=== PATIENT | male | born 1965 | race Caucasian/White ===

== ENCOUNTER 2021-02-28 22:38 | Emergency (ER) | payer OTHER ==
[~2021-02-28] VITALS: Ht 172.7 cm; Wt 65.8 kg
== END 2021-03-01 04:04 | disposition home or self-care (01) ==
LOC: ER 22:38
DX: S93.402A Sprain of unspecified ligament of left ankle, initial encounter (principal); W05.0XXA Fall from non-moving wheelchair, initial encounter; Y92.009 Unspecified place in unspecified non-institutional (private) residence as the place of occurrence of the external cause
CPT/HCPCS: 73562-LT; 73610; 99283-25; A9270

== ENCOUNTER 2021-03-16 19:32 | Inpatient (IN) | payer OTHER ==
[~2021-03-16] VITALS: Ht 172.7 cm; Wt 69.4 kg
[2021-03-16 20:18] LABS: Hematocrit 28.5 % (37.0-53.0); Hemoglobin 9.9 g/dL (13.5-17.5); Mean Corpuscular HGB 28.9 pg (26.0-34.0); Mean Corpuscular HGB Conc 34.7 g/dL (31.5-36.5); Mean Corpuscular Volume 83 fL (80-100); Mean Platelet Volume 10.5 fL (9.1-12.4); Platelet Count 311 K/mm3 (150-400); RDW Coefficient Variation 15.9 % (11.7-14.2); RDW Standard Deviation 48.8 fL (35.1-46.3); Red Blood Cell Count 3.43 M/mm3 (4.30-5.90); White Blood Cell Count 19.78 K/mm3 (4.00-11.30)
[2021-03-16 20:46] LABS: Alanine Aminotransfer (ALT/SGP 25 U/L (12-78); Albumin, Blood 2.4 g/dL (3.4-5.0); Albumin/Globulin Ratio 0.5 (0.8-1.8); Alk Phos 138 U/L (50-136); Anion Gap 13 mmol/L (6-16); Aspartate Aminotrans (AST/SGOT 43 U/L (12-37); Bilirubin, Total 0.6 mg/dL (0.1-1.0); Blood Urea Nitrogen 18 mg/dL (8-24); Bun/Creatinine Ratio 25.5 (12.0-20.0); CO2, Blood 23 mmol/L (21-32); Calcium, Blood 7.9 mg/dL (8.5-10.1); Chloride, Blood 82 mmol/L (98-108); Creatinine, Blood 0.71 mg/dL (0.60-1.20); Globulin, Blood 5.1 g/dL (2.2-4.0); Glomerular Filtration Rate >60 (60-); Glucose, Blood 559 mg/dL (70-99); Potassium, Blood 4.1 mmol/L (3.5-5.5); Sodium, Blood 118 mmol/L (136-145); Total Protein, Blood 7.5 g/dL (6.4-8.2)
[2021-03-16 21:05] LABS: BAND PERCENT MAN 8 % (0-8); BASOPHILS PERCENT MAN 0 % (0-2); EOSINOPHILS PERCENT MAN 0 % (0-6); LYMPHOCYTES ABSOLUTE MAN 0.79 K/mm3 (0.84-5.20); LYMPHOCYTES PERCENT MAN 4 % (21-46); METAMYELOCYTE ABSOLUTE MAN 0.39 K/mm3 (0.00-0.00); METAMYELOCYTE PERCENT MAN 2 % (0-0); MONOCYTES ABSOLUTE MAN 0.59 K/mm3 (0.16-1.47); MONOCYTES PERCENT MAN 3 % (4-13); MYELOCYTE ABSOLUTE MAN 0.19 K/mm3 (0.00-0.00); MYELOCYTE PERCENT MAN 1 % (0-0); SEG NEUTROPHILS PERCENT MAN 82 % (41-73); TOTAL CELLS COUNTED 100
[2021-03-16 23:38] LABS: SARS-Cov-2 (COVID-19) PCR, MMC NEGATIVE (NEGATIVE)
--- NOTE | 2021-03-17 01:27 | NUR ---
PHYSICIAN COMMUNICATION CONTACTED ICE SELLER PHYSICIAN, DR CASTILLO, TO NOTIFY HER THAT THE PATIENT WAS EXTREMELY PAINFUL FROM BLE CELLULITIS AND TO ASK FOR PAIN MEDICATION. DR CASTILLO ORDERED NORCO 5/325 PO Q4 NEEDED.
--- NOTE | 2021-03-17 04:18 | NUR ---
PHYSICIAN COMMUNICATION CONTACTED BUILDING SERVICES COORDINATOR PHYSICIAN, DR CASTILLO, TO NOTIFY HER THAT THE PATIENT WAS STILL HAVING 7/10 PAIN AFTER RECEIVING HIS FIRST DOSE OF NORCO. DR CASTILLO INCREASED THE DOSE TO TWO 5/325 TABLETS OF NORCO PO Q4 HOURS NEEDED.
[2021-03-17 05:54] LABS: Hematocrit 24.9 % (37.0-53.0); Hemoglobin 8.7 g/dL (13.5-17.5); Mean Corpuscular HGB 28.8 pg (26.0-34.0); Mean Corpuscular HGB Conc 34.9 g/dL (31.5-36.5); Mean Corpuscular Volume 83 fL (80-100); Mean Platelet Volume 9.9 fL (9.1-12.4); Platelet Count 226 K/mm3 (150-400); RDW Coefficient Variation 15.7 % (11.7-14.2); RDW Standard Deviation 47.8 fL (35.1-46.3); Red Blood Cell Count 3.02 M/mm3 (4.30-5.90); White Blood Cell Count 16.24 K/mm3 (4.00-11.30)
[2021-03-17 06:04] LABS: Alanine Aminotransfer (ALT/SGP 18 U/L (12-78); Albumin, Blood 1.8 g/dL (3.4-5.0); Albumin/Globulin Ratio 0.5 (0.8-1.8); Alk Phos 99 U/L (50-136); Anion Gap 8 mmol/L (6-16); Aspartate Aminotrans (AST/SGOT 15 U/L (12-37); Bilirubin, Total 0.5 mg/dL (0.1-1.0); Blood Urea Nitrogen 17 mg/dL (8-24); Bun/Creatinine Ratio 26.6 (12.0-20.0); CO2, Blood 24 mmol/L (21-32); Calcium, Blood 7.8 mg/dL (8.5-10.1); Chloride, Blood 93 mmol/L (98-108); Creatinine, Blood 0.64 mg/dL (0.60-1.20); Globulin, Blood 3.7 g/dL (2.2-4.0); Glomerular Filtration Rate >60 (60-); Glucose, Blood 385 mg/dL (70-99); Potassium, Blood 3.2 mmol/L (3.5-5.5); Sodium, Blood 125 mmol/L (136-145)
[2021-03-17 06:06] LABS: Total Protein, Blood 5.5 g/dL (6.4-8.2)
--- NOTE | 2021-03-17 06:48 | NUR ---
SHIFT SUMMARY PATIENT ALERT AND ORIENTED. MEDICATED PER EMAR FOR PAIN. IV PATENT AND FLUSHED. BED IN LOWEST POSITION WITH WHEELS LOCKED AND ALARM ON. CALL LIGHT WITHIN REACH. REPORT GIVEN TO ONCOMING RN.
[2021-03-17 06:56] LABS: BAND PERCENT MAN 16 % (0-8); BASOPHILS PERCENT MAN 0 % (0-2); EOSINOPHILS ABSOLUTE MAN 0.16 K/mm3 (0.00-0.68); EOSINOPHILS PERCENT MAN 1 % (0-6); LYMPHOCYTES % ATYPICAL MANUAL 1 % (0-0); LYMPHOCYTES ABSOLUTE MAN 1.29 K/mm3 (0.84-5.20); LYMPHOCYTES PERCENT MAN 7 % (21-46); METAMYELOCYTE ABSOLUTE MAN 0.16 K/mm3 (0.00-0.00); METAMYELOCYTE PERCENT MAN 1 % (0-0); MONOCYTES PERCENT MAN 0 % (4-13); NEUTROPHILS ABSOLUTE MAN 14.61 K/mm3 (1.96-9.15); SEG NEUTROPHILS PERCENT MAN 74 % (41-73); TOTAL CELLS COUNTED 100
--- NOTE | 2021-03-17 18:37 | NUR ---
PT RESTING IN BED AFTER PM MEDICATION ADMIN AND DINNER. TREATED TWICE PER EMAR FOR PAIN. NO OTHER CHANGES NOTED.
[2021-03-17 23:44] LABS: Vancomycin, Trough 29.7 ug/mL (5.0-10.0)
--- NOTE | 2021-03-18 05:11 | NUR ---
SHIFT SUMMARY A/O, ABLE TO MAKE NEEDS KNOWN. COOPERATIVE WITH CARE. CALLS AND ANSWERS QUESTIONS APPROPRIATELY. STATED LEGS PINCHY, BUT NO REAL COMPLAINT OF PAIN THUS FAR. INDEPENDENT WITH URINAL AT BEDSIDE. NEW IV PLACED. APPEARED TO REST MUCH OF THE NIGHT. NO ACUTE CHANGES NOTED. IV ABX INFUSED WITHOUT COMPLICATIONS. BED REMAINS IN LOWEST POSITION. CALL LIGHT AND BELONGINGS WITHIN REACH. CONTINUE WITH CURRENT PLAN OF CARE. REPORT TO ONCOMING RN.
[2021-03-18 05:42] LABS: BASOPHILS ABSOLUTE AUTO 0.11 K/mm3 (0.00-0.23); BASOPHILS PERCENT AUTO 1 % (0-2); Hemoglobin 10.6 g/dL (13.5-17.5); LYMPHOCYTES ABSOLUTE AUTO 0.38 K/mm3 (0.84-5.20); LYMPHOCYTES PERCENT AUTO 2 % (21-46); MONOCYTES ABSOLUTE AUTO 0.35 K/mm3 (0.16-1.47); MONOCYTES PERCENT AUTO 2 % (4-13); Mean Corpuscular HGB 28.5 pg (26.0-34.0); Mean Corpuscular HGB Conc 32.1 g/dL (31.5-36.5); Mean Platelet Volume 10.7 fL (9.1-12.4); Platelet Count 262 K/mm3 (150-400); RDW Coefficient Variation 15.9 % (11.7-14.2); RDW Standard Deviation 52.5 fL (35.1-46.3); Red Blood Cell Count 3.72 M/mm3 (4.30-5.90); White Blood Cell Count 21.18 K/mm3 (4.00-11.30)
[2021-03-18 05:49] LABS: EOSINOPHILS PERCENT AUTO 1 % (0-6); IMMATURE GRAN PERCENT AUTO 1 % (0-1); Mean Corpuscular Volume 89 fL (80-100); NEUTROPHILS ABSOLUTE AUTO 20.14 K/mm3 (1.96-9.15); NEUTROPHILS PERCENT AUTO 95 % (41-73)
[2021-03-18 06:13] LABS: Vancomycin, Random 21.7 ug/mL
[2021-03-18 06:19] LABS: Anion Gap 8 mmol/L (6-16); Blood Urea Nitrogen 18 mg/dL (8-24); Bun/Creatinine Ratio 25.9 (12.0-20.0); CO2, Blood 23 mmol/L (21-32); Calcium, Blood 8.3 mg/dL (8.5-10.1); Chloride, Blood 96 mmol/L (98-108); Glomerular Filtration Rate >60 (60-); Glucose, Blood 27 mg/dL (70-99); Potassium, Blood 3.6 mmol/L (3.5-5.5); Sodium, Blood 127 mmol/L (136-145)
[2021-03-18 06:26] LABS: BAND PERCENT MAN 1 % (0-8); BASOPHILS PERCENT MAN 0 % (0-2); EOSINOPHILS PERCENT MAN 0 % (0-6); LYMPHOCYTES ABSOLUTE MAN 0.63 K/mm3 (0.84-5.20); LYMPHOCYTES PERCENT MAN 3 % (21-46); MONOCYTES PERCENT MAN 0 % (4-13); NEUTROPHILS ABSOLUTE MAN 20.54 K/mm3 (1.96-9.15); SEG NEUTROPHILS PERCENT MAN 96 % (41-73); TOTAL CELLS COUNTED 100
--- NOTE | 2021-03-18 06:28 | NUR ---
PHYSICIAN CORRESPONDENCE RECIEVED CRITICAL VALUE FOR GLUCOSE OF 27. WAS IN SPEAKING /c PATIENT PRIOR TO CALL FROM LAB; APPEARED ASYMPTOMATIC. UPON ASSESSMENT PATIENT STATED THAT HE HAD EATEN SOME OF HIS LEFTOVERS FROM YESTERDAYS TRAYS. RE-CHECKED /c FLOOR GLUCOMETER; READ 59. GIVEN SOME CRANBERRY JUICE. PHYSICIAN OK WITH COURSE OF ACTION.
--- NOTE | 2021-03-18 11:37 | NUR ---
20 G LOCATED IN LAC. NO S/S OF PHLEBITIS, FLUSHED EASILY WITH 10 CC NS.
--- NOTE | 2021-03-18 16:04 | NUR ---
PT TRANSFERRED TO SURGICAL UNIT AT 1500. REPORT GIVEN TO JB VERA.
--- NOTE | 2021-03-18 17:34 | NUR ---
ASSUMED CARE OF PATIENT. PT IS NOT HAPPY WITH HIS ROOM CHANGE. STATES HE "WILL " IF HE CAN'T USE THE PHONE. HE DOES HAVE HIS PERSONAL CELL PHONE BUT HAS NO PROTOZOOLOGY TEACHER WITH HIM. HE IS ALSO CONCERNED ABOUT LOST UPPER DENTURE. STATES HE TOOK OUT HIS DENTURE WHILE IN THE ED AND WAS TRANSFERRED BEFORE HE WAS ABLE TO PUT IT BACK IN HIS MOUTH. THIS IS THE ONLY THING HE REPORTS LOST. NURSING SUP FOR ED NOTIFIED AND WILL SEARCH. WOUNDS CLEANED AND WRAPPED PER NURSES DIRECTION. PT TOLERATED WELL. BED BATH GIVEN. PATIENT NOW EATING HIS MEAL AND RESTING.
--- NOTE | 2021-03-18 23:54 | NUR ---
PT RESTING COMFORTABLY IN BED. CALL LIGHT WITHIN REACH. PT OFFERED NIGHTTIME CARE, DECLINES. PT TO CALL FOR FURTHER NEEDS.
--- NOTE | 2021-03-19 00:05 | NUR ---
MISSED DOCUMENTATION OF CHEMICAL DVT PROPHALXIS. PT IS ON LOVENOX AT 0900.
[2021-03-19 05:47] LABS: Hematocrit 26.5 % (37.0-53.0); Hemoglobin 8.8 g/dL (13.5-17.5); Mean Corpuscular HGB 28.5 pg (26.0-34.0); Mean Corpuscular HGB Conc 33.2 g/dL (31.5-36.5); Mean Corpuscular Volume 86 fL (80-100); Mean Platelet Volume 9.8 fL (9.1-12.4); Platelet Count 310 K/mm3 (150-400); RDW Coefficient Variation 16.3 % (11.7-14.2); RDW Standard Deviation 51.8 fL (35.1-46.3); Red Blood Cell Count 3.09 M/mm3 (4.30-5.90)
--- NOTE | 2021-03-19 05:49 | NUR ---
PT WAS PLEASENT THROUGHOUT THE CONCRETE FOREMAN. DRESSING CHANGED X2, LARGE AMOUNT OF DRAINAGE, SHEETS CHANGED. PT COMPLAINED OF PAIN IN BILATERAL LEGS, MEDICATION WAS EFFECTIVE BUT DOES CAUSE SOME ITCHINESS. PT ADVISED NOT TO SCRATCH, ITCH CREAM APPLIED. VITAL SIGNS REMAINED STABLE, BUT NOTE HEART RATE ELEVATED, RANGING FROM 108-113. PT USES BEDSIDE URINAL WITH NO DIFFICULTIES. PERSONAL CARE ITEMS PROVIDED. TOLERATING PO WELL. WILL GIVE REPORT TO DAY SHIFT RN.
[2021-03-19 06:22] LABS: Anion Gap 8 mmol/L (6-16); Blood Urea Nitrogen 17 mg/dL (8-24); Bun/Creatinine Ratio 23.1 (12.0-20.0); CO2, Blood 27 mmol/L (21-32); Calcium, Blood 8.5 mg/dL (8.5-10.1); Chloride, Blood 94 mmol/L (98-108); Creatinine, Blood 0.74 mg/dL (0.60-1.20); Glomerular Filtration Rate >60 (60-); Glucose, Blood 41 mg/dL (70-99); Potassium, Blood 3.4 mmol/L (3.5-5.5); Sodium, Blood 129 mmol/L (136-145); Vancomycin, Random 13.1 ug/mL
--- NOTE | 2021-03-19 06:32 | NUR ---
LAB CALLED.PT WITH A CRITICAL LOW BLOOD GLUCOSE OF 41. THIS RN WAS IN ROOM WITH PT CHANGING HIS BILATERAL LEG DRESSINGS. PT WAS ALERT AND TALKING. ASYMPTOMATIC.APPLE JUICE AND SOFT PEARS PROVIDED. WILL RE-CHECK CHEM BG IN 10 MINUTES AND NOTIFY PHYSICIAN AN REPORT TO ON-COMING DAY RN
--- NOTE | 2021-03-19 06:51 | NUR ---
RE-CHECKED PTS CHEM-BG. @ 0638 GLUCOSE 87
[2021-03-19] MEDS ORDERED: SERT100 PO (08:33)
[2021-03-19] MEDS ORDERED: HYDHCL25 PO (08:35)
[2021-03-19] MEDS ORDERED: Prinivil10 MG PO (08:36)
[2021-03-19] MEDS ORDERED: INSULANPEN SC (08:40)
[2021-03-19] MEDS ORDERED: HUMALOG KW100 UNIT/1 (08:41)
--- NOTE | 2021-03-19 13:20 | NUR ---
PT RESTING WITH CALL LIGHT WITHIN REACH. HE IS REQUESTING HIS WOUNDS NOT BE DRESSED UNTIL LATER IN THE DAY. NEW ORDER FROM DR. MATTHEWS FOR WOUND CARE. PULSE RANGING 100-108.
--- NOTE | 2021-03-19 15:53 | NUR ---
WOUND CARE COMPLETED WITHOUT DIFFICULTY. PT TOLERATED WELL. CONTINUES TO HAVE SOME SLOUGHING OF SKIN DUE TO EDEMA. WAS POSITIONED ON RIGHT SIDE TO ALLOW SKIN ON BACK OF LEFT THIGH TO DRY. PT CAUTIONED TO NOT SCRATCH OR RUB ON SKIN.
--- NOTE | 2021-03-19 16:50 | NUR ---
DISCUSSED MISSING DENTURE WITH LASHON DUMONT. HE WILL CONTACT THE PATIENT ADVOCATE TO HELP WITH GETTING A NEW DENTURE.
--- NOTE | 2021-03-19 18:14 | NUR ---
PT FELLS BETTER AND MORE RESTED TODAY. WAS ABLE TO SLEEP FOR SEVERAL HOURS THIS AFTERNOON. WAS EVALUATED BY PT,OT AND STEAM SETTER. DISCHARGE PLAN IS TO DISCHARGE BACK TO [facility] WITH WOUND CLINIC REFERRAL. PT IN AGREEMENT WITH THIS PLAN. LOVENOX BEGUN TODAY FOR DVT PROPHALAXYS. EATING BETTER NOW THAT DIET IS MECHANICAL SOFT. REQUEST FOR PATIENT ADVOCATE TO SEE REGARDING HIS MISSING UPPER DENTURE. CONTINUES TO BE BRADYCARDIC, 100-108, DESPITE DOSE OF METOPROLOL 12.5MG. STILL REQUESTING PAIN MEDICATION Q6 HOURS. SKIN BREAKDIWN NOTED BETWEEN TOES. CURRENTLY RESTING WITH TV ON AND RAILS UP.
--- NOTE | 2021-03-19 23:21 | NUR ---
LATE ENTRY: PT'S NIGHT CHEM-BG GLUCOSE LEVEL READING AT 316. PT NOT SYMPTOMATIC.NO INSULIN ORDERED. NOTE: PTS BS HAS BEEN UP AND DOWN. I CONSULTED WITH THE NURSING BEAD FLIPPER AND CLINICAL NURSE MANAGERS THEY CAME THROUGH. THEY ADVICED MONITORING AND CONSULTING IN THE MORNING WITH THE PHYSICIAN TO ADJUST THE INSULIN. WILL RE-CHECK PTS GLUCOSE AND CONTINUE TO MONITOR.
--- NOTE | 2021-03-20 00:53 | NUR ---
AFTER SECOND HS CHEM-BG TAKEN, IT WAS NOTED TO BE 340. PTS GLUCOSE TRENDING UP. FINN [facility] [employer] ADVISORY TEAM WATCH OFFICER CONSULTED. DR TOWNSEND CALLED. VO OVER THE PHONE TO KEEP MED SCALE AND DOSE WITH HUMALOG SHORT ACTING NOW. DOSE GIVEN WILL CONTINUE TO MONITOR.
[2021-03-20 05:33] LABS: BASOPHILS ABSOLUTE AUTO 0.03 K/mm3 (0.00-0.23); BASOPHILS PERCENT AUTO 0 % (0-2); EOSINOPHILS PERCENT AUTO 2 % (0-6); Hematocrit 23.7 % (37.0-53.0); Hemoglobin 7.6 g/dL (13.5-17.5); IMMATURE GRAN ABSOLUTE AUTO 0.12 K/mm3 (0.00-0.10); IMMATURE GRAN PERCENT AUTO 1 % (0-1); LYMPHOCYTES ABSOLUTE AUTO 0.89 K/mm3 (0.84-5.20); LYMPHOCYTES PERCENT AUTO 7 % (21-46); MONOCYTES ABSOLUTE AUTO 0.41 K/mm3 (0.16-1.47); MONOCYTES PERCENT AUTO 3 % (4-13); Mean Corpuscular HGB 28.1 pg (26.0-34.0); Mean Corpuscular HGB Conc 32.1 g/dL (31.5-36.5); Mean Corpuscular Volume 88 fL (80-100); Mean Platelet Volume 10.6 fL (9.1-12.4); NEUTROPHILS ABSOLUTE AUTO 11.93 K/mm3 (1.96-9.15); NEUTROPHILS PERCENT AUTO 88 % (41-73); Platelet Count 287 K/mm3 (150-400); RDW Coefficient Variation 16.7 % (11.7-14.2); RDW Standard Deviation 53.9 fL (35.1-46.3); White Blood Cell Count 13.58 K/mm3 (4.00-11.30)
--- NOTE | 2021-03-20 05:44 | NUR ---
PT STATED HE WAS TIRED THIS EVENING. WANTED TO BE LEFT ALONE AFTER IV ANTIBIOTICS INFUSED. BLOOD GLUCOSE WAS TRENDING UP (SEE PREVIOUS NOTE). PT ASYMPTOMATIC, NURSING SUP CONSULTED AND CALLED. PER MD 3UNITS OF QUICK ACTING HUMALOG GIVEN SUB Q. PER NURSING SUP OKAY TO WAIT TILL NEXT SCHEDULED CHEM BG TO RE-TEST. VSS THROUGHOUT THE EVENING, BILATERAL LEG DRESSINGS DRY AND INTACT, PT DID HAVE A BM TONIGHT. WILL GIVE REPORT TO DAY RN AND HAVE THE ROUNDING PHYSICIAN POSSIBLY ADJUST HIS INSULIN.
[2021-03-20 05:53] LABS: Anion Gap 9 mmol/L (6-16); Blood Urea Nitrogen 15 mg/dL (8-24); Bun/Creatinine Ratio 22.6 (12.0-20.0); CO2, Blood 24 mmol/L (21-32); Calcium, Blood 8.3 mg/dL (8.5-10.1); Chloride, Blood 97 mmol/L (98-108); Creatinine, Blood 0.66 mg/dL (0.60-1.20); Glomerular Filtration Rate >60 (60-); Glucose, Blood 283 mg/dL (70-99); Potassium, Blood 4.2 mmol/L (3.5-5.5); Sodium, Blood 130 mmol/L (136-145)
--- NOTE | 2021-03-20 10:01 | NUR ---
PT. WANTED TO NAP & WAS COLD. BILAT LEG DRESSINGS WITH SMALL AMT. YELLOW FLUID IN SCATTERED AREAS ON DRESSSING. PT. WAS GIVEN PAIN MEDICATION PER ORDER. PT. WAS GIVEN A WARM BLANKET. IV ANTIBIOTIC INFUSING. CALL LIGHT IS WITHIN REACH.
--- NOTE | 2021-03-20 11:55 | NUR ---
PT. ADVOCATE HERE TO TALK WITH PT. ABOUT HIS MISSING DENTURES.
--- NOTE | 2021-03-20 13:04 | NUR ---
BOTH PT & OT HAVE VISITED PT.
--- NOTE | 2021-03-20 15:14 | NUR ---
1400 BILAT EXTREMITIES CLEANSED WITH WOUND MAP DRAFTER & WAS PAT DRY. XEROFORM APPLIED TO OPEN WOUNDS & THEN COVERED WITH ABD. & WRAPPED WITH KERLIX. XEROFORM PLACED BETWEEN DIGITS ON BILAT TOES. RIGHT LOWER LEG WITH OPEN WOUND APPROX. DIME SIZE, LEFT LOWER LEG WITH LARGE OPEN WOUND WITH BLACK SCATTERED AREAS AROUND SITE. BILAT LEGS WEEPING. ALSO LEFT UPPER LEG WITH PEELED SKIN, & REDDENED. BILAT LEGS WITH EDEMA. PEDAL PULSES PRESENT. PT. ALSO GIVEN BATHWIPES & WASHCLOTH FOR BODY CARE. BACK WAS WASHED & TRIAMCINOLONE CREAM APPLIED. PT. VERBALIZED IT WAS ITCHING. PT. HAD ALSO VERBALIZED THAT AFTER CHANGING HIS DRESSINGS ON HIS LEGS THAT IT FELT BETTER.
--- NOTE | 2021-03-20 15:35 | NUR ---
TEGADERM DRESSING COMING OFF, DRESSGING WAS CHANGED.
--- NOTE | 2021-03-20 15:37 | NUR ---
PT. DRINKING WATER & DIET PEPSI AT BEDSIDE.
--- NOTE | 2021-03-20 15:43 | NUR ---
0840 DR. MATTHEWS WAS SEEING PT. DR. MATTHEWS WAS NOTIFIED OF LABS, H&H BEING LOW. PER THEY WILL CONTINUE TO MONITOR.
--- NOTE | 2021-03-20 17:48 | NUR ---
PT. LUNGS CLEAR. PT. INSULIN GIVEN PER DR. ORDER. PT. ALSO RECEIVED HUMALOG ORDERED FOR CBG'S. PT. DID C/O BILAT LEG PAIN L>R & WAS MEDICATED X2 T.O. SHIFT. DRESSING CHANGE WAS DONE TO BILAT LEGS X1 PER ORDER. PT. NEEDED ASSIST UP TO BED SIDE COMMODE FOR BM. PT. VOIDS IN HIS URINIAL ON HIS OWN. PT. ALSO ABLE TO REPOSITION SELF IN HIS BED. PT. ABLE TO CLEANSE HIMSELF WITH BATH WIPES & THEN ORSC.NSC WASHED PT. BACK FOR HIM & APPLIED ORDERED CREAM TO HIS BACK FOR ITCHING. PT. WAS GIVEN WARM BLANKETS WHEN REQUESTED & FULL LINEN CHANGE WAS DONE. CALL LIGHT HAS BEEN WITHIN REACH.
--- NOTE | 2021-03-21 00:59 | NUR ---
PT SLEEPING ON LEFT SIDE, CALL LIGHT IN REACH, BED IN LOW-LOCKED POSITION.
--- NOTE | 2021-03-21 01:07 | NUR ---
LAB CALLED REGARDING AM LAB DRAW AND DRAWING VANCO TROUGH WITH 0700 LAB DRAW, HIS NEXT AM DOSE IS 0900 SO I TOLD HIM THAT WOULD BE FINE THAT IS HOW THEY DO IT ON THE FLOOR.
--- NOTE | 2021-03-21 06:06 | NUR ---
PT UP TO BEDSIDE COMMODE FOR MED SIZED BOWEL MOVEMENT DURING THE NOC. PT AWAKE AT 0600 ASKING FOR COFFEE. AT THAT TIME, RN CHANGED LEFT LEG DRESSING R/T MOISTURE AND GETTING LOOSE. PT APPEARS COMFORTABLE AT THIS TIME. CALL LIGHT IN REACH, TV ON AND BED IN LOW-LOCKED POSITION.
[2021-03-21 07:35] LABS: Hematocrit 23.1 % (37.0-53.0); Hemoglobin 7.6 g/dL (13.5-17.5); Mean Corpuscular HGB 28.7 pg (26.0-34.0); Mean Corpuscular HGB Conc 32.9 g/dL (31.5-36.5); Mean Corpuscular Volume 87 fL (80-100); Mean Platelet Volume 10.4 fL (9.1-12.4); Platelet Count 354 K/mm3 (150-400); RDW Coefficient Variation 16.7 % (11.7-14.2); RDW Standard Deviation 54.2 fL (35.1-46.3); Red Blood Cell Count 2.65 M/mm3 (4.30-5.90)
[2021-03-21 07:49] LABS: Vancomycin, Trough 14.5 ug/mL (5.0-10.0)
[2021-03-21 07:58] LABS: Anion Gap 8 mmol/L (6-16); Blood Urea Nitrogen 9 mg/dL (8-24); Bun/Creatinine Ratio 14.2 (12.0-20.0); CO2, Blood 26 mmol/L (21-32); Calcium, Blood 8.1 mg/dL (8.5-10.1); Chloride, Blood 96 mmol/L (98-108); Creatinine, Blood 0.64 mg/dL (0.60-1.20); Ferritin, Serum 199 ng/mL (26-388); Glomerular Filtration Rate >60 (60-); Glucose, Blood 246 mg/dL (70-99); Iron Serum 10 ug/dL (65-175); Percent Saturation 6.7 % (20.0-50.0); Potassium, Blood 4.3 mmol/L (3.5-5.5); Sodium, Blood 130 mmol/L (136-145); Total Iron Binding Capacity 150 ug/dL (250-450)
--- NOTE | 2021-03-21 12:26 | NUR ---
patient resting in bed. enouraged pt to float heels to prevent skin damage. states pain is 5/10 which is tolerable without pain medication needed. water refilled.pt denies other needs at present. pt states he is going to try to rest being tired from pt/ot visit. call light in reach.
--- NOTE | 2021-03-22 01:33 | NUR ---
PT SLEEPING, REPOSTIONS SELF THROUGH THE NIGHT. PT AWAKENS AND IS COOPERATIVE WITH IV CHECK. TV TURNED OFF FOR PT. CONT TO MONITOR.
--- NOTE | 2021-03-22 04:24 | NUR ---
PT WITH C/O NAUSEA, ZOFRAN 4MG IV GIVEN WITH 10ML NS IV FLUSH. PT REPOSITIONED SELF UP IN BED AND FEET READJUSTED ON PILLOW SO HEELS WERE OFF THE PILLOW. PT DENIES PAIN IN LOWER EXTREMITIES. BED IN LOW, LOCKED POSITION, CALL LIGHT IN REACH-TV ON PER PT.
--- NOTE | 2021-03-22 06:02 | NUR ---
PT SLEPT WELL, PO FLUID INTAKE AND OUTPUT GOOD THROUGH THE NIGHT. PT STATES WHEN ASKED IF IV ZOFRAN HELPED HIS NAUSEA, "A LITTLE BIT." PT THEN WAS PROVIDED DIET SPRITE PER REQUEST. HEELS STILL ELEVATED UP OFF PRESSURE. AWAITING AM LAB DRAW. REPORT WILL BE GIVEN TO ONCANKIT DAY RN.
[2021-03-22 07:16] LABS: BASOPHILS ABSOLUTE AUTO 0.03 K/mm3 (0.00-0.23); BASOPHILS PERCENT AUTO 0 % (0-2); EOSINOPHILS ABSOLUTE AUTO 0.09 K/mm3 (0.00-0.68); EOSINOPHILS PERCENT AUTO 1 % (0-6); Hematocrit 23.5 % (37.0-53.0); Hemoglobin 7.7 g/dL (13.5-17.5); IMMATURE GRAN ABSOLUTE AUTO 0.22 K/mm3 (0.00-0.10); IMMATURE GRAN PERCENT AUTO 2 % (0-1); LYMPHOCYTES ABSOLUTE AUTO 0.82 K/mm3 (0.84-5.20); LYMPHOCYTES PERCENT AUTO 6 % (21-46); MONOCYTES ABSOLUTE AUTO 0.72 K/mm3 (0.16-1.47); MONOCYTES PERCENT AUTO 6 % (4-13); Mean Corpuscular HGB 28.2 pg (26.0-34.0); Mean Corpuscular HGB Conc 32.8 g/dL (31.5-36.5); Mean Corpuscular Volume 86 fL (80-100); Mean Platelet Volume 10.5 fL (9.1-12.4); NEUTROPHILS PERCENT AUTO 86 % (41-73); Platelet Count 396 K/mm3 (150-400); RDW Coefficient Variation 16.9 % (11.7-14.2); RDW Standard Deviation 53.9 fL (35.1-46.3); Red Blood Cell Count 2.73 M/mm3 (4.30-5.90); White Blood Cell Count 13.08 K/mm3 (4.00-11.30)
--- NOTE | 2021-03-22 10:51 | NUR ---
PT STATES PAIN IS COMING DOWN FROM ORGINAL 03/05 TO 01/03 AND DENIES FURTHER NEEDS FOR OTHER MEDICATIONS. ASSISTED PT WITH REPOSITIONING AND ELEVATING LIMBS. DENIES OTHER NEEDS AT PRESENT. CALL LIGHT IN REACH.
--- NOTE | 2021-03-22 16:02 | NUR ---
FACE SHEET FAXED TO THE WOUND CARE CLINIC TO ASSIST WITH REFERAL PROCESS FOR DISCHARGE TOMORROW. PATIENT STATES HE DOES NOT HAVE A PERSONAL PHONE BUT CAN USE THE [facility] PUBLIC PHONE TO CALL CLINIC FOR UPDATES UNTIL HE CAN GET A PERSONAL PHONE IN 1-2 WEEKS TO BE CALLED BY THEM.
--- NOTE | 2021-03-22 23:15 | NUR ---
PT. CBG WAS CHECKED AT [facility]. ORDERS WERE ONLY FOR BEFORE MEALS. PT. CBG WAS 316 AT 0859. PT. VERBALIZED FEELING FINE. PT. WITHOUT ANY SYMPTOMS. PT. DRINKING DIET PEPSI & WATER AT BEDSIDE. PT. SLEEPING OFF & ON.
--- NOTE | 2021-03-23 00:10 | NUR ---
DOING ASSESSMENT, PT. LUNGS CLEAR BUT DECREASED IN BASES.
--- NOTE | 2021-03-23 00:49 | NUR ---
PT. AWAKENED TO VOID IN URINAL. URINAL EMPTIED. PT. VERBALIZES BEING WARM ENOUGH. INSTRUCTED PT. TO CALL IF NEEDED. ANYTHING.
--- NOTE | 2021-03-23 01:39 | NUR ---
CBG DONE AT DIDN'T TRANSFER OVER FROM CBG MACHINE TO COMPUTER. CBG WAS 316.
--- NOTE | 2021-03-23 05:27 | NUR ---
PT. HR CHECKED MANUALLY 112. JUST WOKE PT. UP FOR SHIFT VITAL SIGNS. PT. VERBALIZES FEELING OK. DENIES PAIN. PT. SLEEPING MOSTLY T.O. NOC. PT. DOES REPOSITION SELF. PT. VOIDING IN URINAL T.O. NOC. PT. TOOK IN 250 ORAL FLUIDS.
[2021-03-23] MEDS ORDERED: METO25ER PO (12:36)
[2021-03-23] MEDS ORDERED: DOXY100 PO (12:37)
[2021-03-23] MEDS ORDERED: VISBIOME 112.51 EACH PO (12:37)
[2021-03-23] MEDS ORDERED: Norco 5-325 Ta1 EACH PO (12:40)
--- NOTE | 2021-03-23 13:33 | NUR ---
PT DISCHARGED AT 1330 TO [facility]. DISCHARGE INSTRUCTIONS REVIEWED AND ALL QUESTIONS ANSWERED. NEW MEDICATIONS CALLED TO [facility] AT [facility] AND WRITTEN RX FOR NORCO GIVEN TO PATIENT. PT DISCHARGED WITH ALL HIS BELONGINGS WITH THE EXCEPTION OF HIS UPPER DENTURE. PT ADVOCATE AWARE AND IS HELPING RESOLVE THIS ISSUE. INSTRUCTED TO CALL [facility] SEVERAL DAYS BEFORE HIS APPOINTMENTS THEY ARE VERY BUSY AT THIS TIME. PROVIDED WITH PHONE NUMBERS FOR WOUND CLINIC, [facility] AND THE PATIENT ADVOCATE. VSS. PT REQUESTED NORCO FOR 8/10 PAIN AND WAS MEDICATED.
== END 2021-03-23 13:41 | disposition home health service (06) | DRG 872 ==
LOC: ER 19:32 → MEDS 23:05 → ER 03-17 00:17 → MEDS 03-17 00:17 → ORSCIP 03-18 15:10 → MEDS 03-18 15:10 → ORSCIP 03-23 13:41
PROVIDERS: Hospitalist; Internal Medicine; Pharmacist; Physician Assistant; ADMIT Internal Medicine
DX: A41.9 Sepsis, unspecified organism (principal); E87.2 Acidosis; E87.1 Hypo-osmolality and hyponatremia; L03.115 Cellulitis of right lower limb; L03.116 Cellulitis of left lower limb; R65.20 Severe sepsis without septic shock; Z20.822 Contact with and (suspected) exposure to COVID-19; E87.6 Hypokalemia; F41.9 Anxiety disorder, unspecified; F12.90 Cannabis use, unspecified, uncomplicated; I10 Essential (primary) hypertension; E11.65 Type 2 diabetes mellitus with hyperglycemia; D63.8 Anemia in other chronic diseases classified elsewhere; Z98.890 Other specified postprocedural states; Z79.4 Long term (current) use of insulin; Z79.899 Other long term (current) drug therapy; Z59.0 Homelessness
CPT/HCPCS: 36415; 73700; 80048; 80053; 80202; 82728; 82947; 83540; 83550; 83605; 85025; 85027; 87040; 93970; 96367; 96374; 96375; 97110; 97161; 97166; 97530; 97535; 99285-25; A9270; J0696; J1650; J2405; J2543; J3010; J3370; J7030; J7050; U0004

== ENCOUNTER 2021-04-12 01:54 | Day surgery (SDC) | payer OTHER ==
[~2021-04-12 01:54] MED LIST: DOXY100 PO; HUMALOG KW100 UNIT/1; HYDHCL25 PO; INSULANPEN SC; METO25ER PO; Norco 5-325 Ta1 EACH PO; Prinivil10 MG PO; SERT100 PO; VISBIOME 112.51 EACH PO
== END 2021-04-12 23:22 | disposition home or self-care (01) ==
LOC: WOUND 01:54
DX: E10.622 Type 1 diabetes mellitus with other skin ulcer (principal); L97.822 Non-pressure chronic ulcer of other part of left lower leg with fat layer exposed; L97.812 Non-pressure chronic ulcer of other part of right lower leg with fat layer exposed; L03.116 Cellulitis of left lower limb; E10.59 Type 1 diabetes mellitus with other circulatory complications; E10.51 Type 1 diabetes mellitus with diabetic peripheral angiopathy without gangrene; Z59.0 Homelessness

== ENCOUNTER 2021-04-22 12:14 | Inpatient (IN) | payer OTHER ==
[~2021-04-22] VITALS: Ht 172.7 cm; Wt 68.7 kg
[~2021-04-22 12:14] MED LIST changes: -HUMALOG KW100 UNIT/1; -HYDHCL25 PO; -INSULANPEN SC; -METO25ER PO; -Prinivil10 MG PO; -SERT100 PO
[2021-04-22 13:44] LABS: BASOPHILS ABSOLUTE AUTO 0.02 K/mm3 (0.00-0.23); BASOPHILS PERCENT AUTO 0 % (0-2); EOSINOPHILS PERCENT AUTO 0 % (0-6); Hematocrit 27.5 % (37.0-53.0); Hemoglobin 8.9 g/dL (13.5-17.5); IMMATURE GRAN ABSOLUTE AUTO 0.07 K/mm3 (0.00-0.10); IMMATURE GRAN PERCENT AUTO 1 % (0-1); LYMPHOCYTES ABSOLUTE AUTO 0.65 K/mm3 (0.84-5.20); LYMPHOCYTES PERCENT AUTO 5 % (21-46); MONOCYTES ABSOLUTE AUTO 0.59 K/mm3 (0.16-1.47); MONOCYTES PERCENT AUTO 5 % (4-13); Mean Corpuscular HGB 26.6 pg (26.0-34.0); Mean Corpuscular HGB Conc 32.4 g/dL (31.5-36.5); Mean Corpuscular Volume 82 fL (80-100); Mean Platelet Volume 9.4 fL (9.1-12.4); NEUTROPHILS ABSOLUTE AUTO 11.45 K/mm3 (1.96-9.15); NEUTROPHILS PERCENT AUTO 90 % (41-73); Platelet Count 427 K/mm3 (150-400); RDW Coefficient Variation 16.4 % (11.7-14.2); RDW Standard Deviation 49.7 fL (35.1-46.3); Red Blood Cell Count 3.34 M/mm3 (4.30-5.90); White Blood Cell Count 12.78 K/mm3 (4.00-11.30)
[2021-04-22 13:45] LABS: Alanine Aminotransfer (ALT/SGP 14 U/L (12-78); Albumin/Globulin Ratio 0.6 (0.8-1.8); Alk Phos 106 U/L (50-136); Anion Gap 19 mmol/L (6-16); Aspartate Aminotrans (AST/SGOT 14 U/L (12-37); Bilirubin, Total 0.7 mg/dL (0.1-1.0); Blood Urea Nitrogen 20 mg/dL (8-24); Bun/Creatinine Ratio 26.5 (12.0-20.0); CO2, Blood 22 mmol/L (21-32); Chloride, Blood 84 mmol/L (98-108); Creatinine, Blood 0.76 mg/dL (0.60-1.20); Glomerular Filtration Rate >60 (60-); Glucose, Blood 624 mg/dL (70-99); Potassium, Blood 4.4 mmol/L (3.5-5.5); Sodium, Blood 125 mmol/L (136-145)
[2021-04-22] MEDS ORDERED: SERT100 PO ×2 (15:12)
[2021-04-22] MEDS ORDERED: Prinivil10 MG PO ×2 (15:13)
[2021-04-22] MEDS ORDERED: METO25ER PO ×2 (15:13)
[2021-04-22] MEDS ORDERED: INSULANPEN SC ×2 (15:13)
[2021-04-22] MEDS ORDERED: Hydroxyzine HCl50 MG PO ×2 (15:14)
[2021-04-22] MEDS ORDERED: FOLI1 PO ×2 (15:14)
[2021-04-22] MEDS ORDERED: HUMALOG KW100 UNIT/1 SC ×2 (15:16)
[2021-04-22 17:29] LABS: Source, Urine Voided
[2021-04-22 17:45] LABS: Appearance, Urine Clear (Clear); Bilirubin, Urine Neg (Neg); Blood, Urine 1+ (Neg); Color, Urine Yellow (P-Yellow); Glucose Qualitative, Urine 4+ (Neg); Ketones, Urine 3+ (Neg); Leukocyte Esterase, Urine Neg (Neg); Nitrite, Urine Neg (Neg); Protein, Urine 2+ (Neg); Specific Gravity, Urine 1.015 (1.003-1.022); Urobilinogen, Urine NORM (Normal)
[2021-04-22 18:02] LABS: U Amphetamine Screen Not Detected; U Barbituate Screen Not Detected; U Benzodiazapine Screen Not Detected; U Buprenorphine Screen Not Detected; U Cannabinoids Screen Not Detected; U Cocaine Screen Not Detected; U Methadone Screen Not Detected; U Methamphetamine Screen Not Detected; U Opiates Screen Not Detected; U Oxycodone Screen Not Detected; U Phencyclidine Screen Not Detected; U Propoxyphene Screen Not Detected
[2021-04-22 18:16] LABS: Bacteria Few /hpf; Squamous Epithelial Cells Few /hpf (Few)
[2021-04-22 18:25] LABS: SARS-Cov-2 (COVID-19) PCR, MMC NEGATIVE (NEGATIVE)
--- NOTE | 2021-04-22 19:45 | NUR ---
transfer report from Caren RUIZ RN on 55 year old Male who resides at [place] & has lt LE cellulitis with active maggot infestation despite using peroxide cleanse per report. Will use contact isolation & sticky mat at [facility] called for. Await admission, spoke with for consults.
[2021-04-23 04:59] LABS: BASOPHILS ABSOLUTE AUTO 0.05 K/mm3 (0.00-0.23); BASOPHILS PERCENT AUTO 1 % (0-2); EOSINOPHILS ABSOLUTE AUTO 0.05 K/mm3 (0.00-0.68); EOSINOPHILS PERCENT AUTO 1 % (0-6); Hematocrit 26.3 % (37.0-53.0); Hemoglobin 8.5 g/dL (13.5-17.5); IMMATURE GRAN ABSOLUTE AUTO 0.02 K/mm3 (0.00-0.10); IMMATURE GRAN PERCENT AUTO 0 % (0-1); LYMPHOCYTES ABSOLUTE AUTO 1.09 K/mm3 (0.84-5.20); LYMPHOCYTES PERCENT AUTO 11 % (21-46); MONOCYTES ABSOLUTE AUTO 0.56 K/mm3 (0.16-1.47); MONOCYTES PERCENT AUTO 6 % (4-13); Mean Corpuscular HGB 26.9 pg (26.0-34.0); Mean Corpuscular HGB Conc 32.3 g/dL (31.5-36.5); Mean Corpuscular Volume 83 fL (80-100); Mean Platelet Volume 9.4 fL (9.1-12.4); NEUTROPHILS PERCENT AUTO 82 % (41-73); Platelet Count 340 K/mm3 (150-400); RDW Coefficient Variation 16.2 % (11.7-14.2); Red Blood Cell Count 3.16 M/mm3 (4.30-5.90); White Blood Cell Count 9.57 K/mm3 (4.00-11.30)
[2021-04-23 05:21] LABS: Alanine Aminotransfer (ALT/SGP 11 U/L (12-78); Albumin, Blood 2.5 g/dL (3.4-5.0); Albumin/Globulin Ratio 0.6 (0.8-1.8); Alk Phos 92 U/L (50-136); Anion Gap 7 mmol/L (6-16); Aspartate Aminotrans (AST/SGOT 14 U/L (12-37); Bilirubin, Total 0.8 mg/dL (0.1-1.0); Blood Urea Nitrogen 10 mg/dL (8-24); Bun/Creatinine Ratio 16.7 (12.0-20.0); CO2, Blood 28 mmol/L (21-32); Calcium, Blood 8.4 mg/dL (8.5-10.1); Chloride, Blood 94 mmol/L (98-108); Globulin, Blood 4.3 g/dL (2.2-4.0); Glomerular Filtration Rate >60 (60-); Glucose, Blood 402 mg/dL (70-99); Potassium, Blood 4.1 mmol/L (3.5-5.5); Sodium, Blood 129 mmol/L (136-145); Total Protein, Blood 6.8 g/dL (6.4-8.2)
--- NOTE | 2021-04-23 05:44 | NUR ---
55 year old Male [facility] with uncontrolled diabetes type 1 with bgs over 600 in ER . [facility] short & long lasting insulin rx for this AM, PT has lt LE deep tunneling wound with heavy maggot infestation with ER using 2 bottles of peroxide & this RN this AM used 1 bottle of wound cleanser to remove multiple more. Photos taken but photos printer not working tonight so not on chart. PT saus he had seizure & caused lt le wound.Other scattered wounds. PT on Vanco per pharmacy got 3 l ns in ER. Medicated for acute pain with 1 mg dilaudid 1 mg x2 & toradol x 1 with helpful effect. WC bound baseline PT brought own WC which may have maggots from lower extremity wounds, none observed on surface. ETOH WD with no PRN needed with HS atarax scheduled.
--- NOTE | 2021-04-23 16:13 | NUR ---
WOUND CARE, SPRAYED WITH SKIN CLEANSER, REMOVED MAGGOTS, WOUND BED CLEAN, MAGGOTS CONTINUE TO CYNDIE DOWN THE OUTER EDGES OF THE WOUND, PATIENT TOLERATED WELL, CLEAN DRESSING PLACED,
--- NOTE | 2021-04-23 17:12 | NUR ---
MEDICATED FOR PAIN, SUCTION TO MAGGOTS, WCTM
[2021-04-24 02:31] LABS: BASOPHILS ABSOLUTE AUTO 0.04 K/mm3 (0.00-0.23); BASOPHILS PERCENT AUTO 1 % (0-2); EOSINOPHILS ABSOLUTE AUTO 0.47 K/mm3 (0.00-0.68); EOSINOPHILS PERCENT AUTO 9 % (0-6); Hematocrit 24.1 % (37.0-53.0); Hemoglobin 7.7 g/dL (13.5-17.5); IMMATURE GRAN ABSOLUTE AUTO 0.02 K/mm3 (0.00-0.10); IMMATURE GRAN PERCENT AUTO 0 % (0-1); LYMPHOCYTES PERCENT AUTO 13 % (21-46); MONOCYTES ABSOLUTE AUTO 0.48 K/mm3 (0.16-1.47); MONOCYTES PERCENT AUTO 9 % (4-13); Mean Corpuscular HGB 26.6 pg (26.0-34.0); Mean Corpuscular Volume 83 fL (80-100); Mean Platelet Volume 9.2 fL (9.1-12.4); NEUTROPHILS PERCENT AUTO 69 % (41-73); Platelet Count 256 K/mm3 (150-400); RDW Coefficient Variation 16.1 % (11.7-14.2); RDW Standard Deviation 48.5 fL (35.1-46.3); White Blood Cell Count 5.51 K/mm3 (4.00-11.30)
[2021-04-24 02:48] LABS: Anion Gap 5 mmol/L (6-16); Blood Urea Nitrogen 13 mg/dL (8-24); Bun/Creatinine Ratio 19.8 (12.0-20.0); CO2, Blood 30 mmol/L (21-32); Calcium, Blood 8.5 mg/dL (8.5-10.1); Chloride, Blood 95 mmol/L (98-108); Creatinine, Blood 0.66 mg/dL (0.60-1.20); Glomerular Filtration Rate >60 (60-); Glucose, Blood 201 mg/dL (70-99); Potassium, Blood 4.2 mmol/L (3.5-5.5); Sodium, Blood 130 mmol/L (136-145)
[2021-04-24 02:49] LABS: Vancomycin, Trough 16.1 ug/mL (5.0-10.0)
--- NOTE | 2021-04-24 06:27 | NUR ---
END OF SHIFT SUMMARY: This nurse did wound care on pt. wound bed is pink with gan exudate. less maggots seen. pt tolerated procedures well. pt pleasant and positive. using urinal. No needs at this time. Call light within reach, bed in lowest position.
--- NOTE | 2021-04-24 10:47 | NUR ---
PATIENT GOT OOB AND AMBULATED TO BATHROOM, SKIN TEAR TO RIGHT POSITERIOR HEEL BLEED, SIGHT CLEANED AND COMPRESSION DRSG APPLIED, ENSURED CALL LIGHT IS WORKING AND WITH IN REACH, WCTM
--- NOTE | 2021-04-24 15:24 | NUR ---
1500 DR RIOS ROUNDED, PATIENT EDUCATED OF THE POSSIBLITY OF AMPUTATION, DRSG CHANGE DONE WITH DR RIOS [address] MATTHEWS
--- NOTE | 2021-04-24 15:54 | NUR ---
VISITED WITH PATIENT
--- NOTE | 2021-04-24 15:56 | NUR ---
Introduction: PT refered by nursing staff. Assessment: PT presented seated upright in bed, with distressed expression. I asked PT how he was doing? PT replied," I don't want to talk about it, I just found out and I don't want to talk about it." I said ok. PT continued, "I'm a Denominational, I pray, but this is too much. I havent had time to think about it. They're going to cut off my leg." I reassured PT that it was fine, that he alone can walk through this difficult time, but he doesn't have to walk alone. Intervention: PT offered prayer. PT offered [place] Bible. Outcome: PT received prayer and Bible. Follow-Up: As needed or requested.
--- NOTE | 2021-04-25 03:56 | NUR ---
SHIFT SUMMARY PT SLEPT WELL MUCH OF THE EVENING. DRESSING CHANGED TO LLE. ONLY A COUPLE OF MAGGOTS SUCTIONED WITH DRESSING CHANGE THIS AM. WOUND CLEANED WITH WOUND CLEANSER AND DRESSED WITH GAUZE, AN ABD PAD, AND KERLEX. PT ALSO HAS SMALL WOUNDS ON BILATERAL HANDS AND BLISTERS ON RIGHT HAND. PAIN REPORTED TO WOUND SITE. MEDICATED PER EMAR. PT NPO SINCE MIDNIGHT FOR PROCEDURE TODAY. 1 UNIT OF PRBC'S COMPLETED THIS EVENING. VITAL SIGNS STABLE. WILL CONTINUE TO MONITOR.
[2021-04-25 04:40] LABS: Hematocrit 23.9 % (37.0-53.0); Hemoglobin 7.9 g/dL (13.5-17.5); Mean Corpuscular HGB 27.4 pg (26.0-34.0); Mean Corpuscular HGB Conc 33.1 g/dL (31.5-36.5); Mean Corpuscular Volume 83 fL (80-100); Mean Platelet Volume 9.4 fL (9.1-12.4); Platelet Count 246 K/mm3 (150-400); RDW Coefficient Variation 15.7 % (11.7-14.2); RDW Standard Deviation 47.7 fL (35.1-46.3); Red Blood Cell Count 2.88 M/mm3 (4.30-5.90); White Blood Cell Count 3.89 K/mm3 (4.00-11.30)
[2021-04-25 05:10] LABS: Anion Gap 4 mmol/L (6-16); Blood Urea Nitrogen 11 mg/dL (8-24); Bun/Creatinine Ratio 15.1 (12.0-20.0); CO2, Blood 30 mmol/L (21-32); Calcium, Blood 8.3 mg/dL (8.5-10.1); Chloride, Blood 96 mmol/L (98-108); Creatinine, Blood 0.73 mg/dL (0.60-1.20); Glomerular Filtration Rate >60 (60-); Glucose, Blood 157 mg/dL (70-99); Potassium, Blood 4.2 mmol/L (3.5-5.5); Sodium, Blood 130 mmol/L (136-145)
--- NOTE | 2021-04-25 07:34 | NUR ---
History, Chart, Medications and Allergies reviewed before start of procedure. Lungs clear T/O to Auscultation. Patient confirms NPO status and agrees with scheduled surgery. Pre-Op teaching done. Pt verbalizes understanding.
--- NOTE | 2021-04-25 18:22 | NUR ---
SHIFT CHANGE PATIENT WENT DOWN TO GET A DEBRIDEMENT DONE OF LOWER LEFT EXTREMITY. PATIENT ARRIVED BACK FROM SURGERY AROUND 11AM. WOUND VAC IN PLACE. PATIENT HAS ONLY REQUESTED PAIN MEDICATION ONCE THIS SHIFT. PATIENT MEDICATED WITH DILAUDID ONCE. PATIENT HAS BLISTERS ON HANDS THAT HAVE BEEN THERE FOR A FEW DAYS. PATIENT PLEASANT AND COOPERATIVE DURING SHIFT. VITAL SIGNS REVIEWED. WILL CONTINUE TO MONITOR UNTIL SHIFT CHANGE.
[2021-04-26 02:07] LABS: Hematocrit 25.5 % (37.0-53.0); Hemoglobin 8.3 g/dL (13.5-17.5); Mean Corpuscular HGB 27.1 pg (26.0-34.0); Mean Corpuscular HGB Conc 32.5 g/dL (31.5-36.5); Mean Corpuscular Volume 83 fL (80-100); Mean Platelet Volume 9.5 fL (9.1-12.4); Platelet Count 269 K/mm3 (150-400); RDW Coefficient Variation 15.9 % (11.7-14.2); RDW Standard Deviation 48.3 fL (35.1-46.3); Red Blood Cell Count 3.06 M/mm3 (4.30-5.90); White Blood Cell Count 5.17 K/mm3 (4.00-11.30)
[2021-04-26 02:24] LABS: Vancomycin, Trough 15.8 ug/mL (5.0-10.0)
[2021-04-26 02:28] LABS: Anion Gap 5 mmol/L (6-16); Blood Urea Nitrogen 12 mg/dL (8-24); Bun/Creatinine Ratio 15.7 (12.0-20.0); CO2, Blood 32 mmol/L (21-32); Calcium, Blood 8.2 mg/dL (8.5-10.1); Chloride, Blood 93 mmol/L (98-108); Creatinine, Blood 0.76 mg/dL (0.60-1.20); Glomerular Filtration Rate >60 (60-); Glucose, Blood 265 mg/dL (70-99); Potassium, Blood 4.2 mmol/L (3.5-5.5); Sodium, Blood 130 mmol/L (136-145)
--- NOTE | 2021-04-26 06:05 | NUR ---
No acute changes or significant events occurred overnight.
--- NOTE | 2021-04-26 18:32 | NUR ---
sHIFT Summary, The patient is A/OX4 to person, place, time and event. He has been pleasent and cooperative with his care. The patient is on bed rest and has been using the urinal. The patient has not had a BM this shift but he denies any abd pain. The patient has pain in his LLE and is being medicated with toradol and dilaudid per emar and he stated that his pain has been controlled well this shift. His wound vac is CDI and drainage is red sanguineous fluid. distal pulses and cap refil <3 seconds present on left foot. The patient requested to discharge to [facility] and I called his councler but they were unable to accomidate. He stated that [facility] and has a plan to take care of himself while staying there. The patient has not shown any signs of ETOH withdrawl this shift. He is on RA and denied any SOB or chest pain. He has been eating well and asks for food in-between meals.
--- NOTE | 2021-04-27 05:53 | NUR ---
Pt AAOx3, denies pain, SOB, or other discomforts at this time. Pt has a wound vac to his LLE that he will be discharging with later today hopefully. Pt to discharge back to the [facility]. Plan: stool sample, bg ac/hs, abx, discharge
--- NOTE | 2021-04-27 12:20 | NUR ---
PATIENT RETURNED TO UNIT/ROOM A&OX NO S/S DISTRESS NOTED WILL CONT TO MONIOR
--- NOTE | 2021-04-27 17:34 | NUR ---
PATIENT WITH NO SIG CHANGES IN CONDITION NOTED THROUGHOUT SHIFT A&OX4 ABLE TO VERBALIZE NEEDS ADEQUATE PO INTAKE BEDREST MAINTAINED USES URINAL MEDICATED FOR INTERMITTENT MOD LLE PAIN PER PRN WITH EFFECTIVENESS WOUND VAC MAINTAINED/INTACT TO LLE VSS RESP EASY/EVEN/UNLABORED NO S/S DISTRESS NOTED WILL CONT TO MONITOR CALL LIGHT WITHIN REACH
--- NOTE | 2021-04-28 04:10 | NUR ---
Pt AAOx3, had some pain which was releived with PRN meds. Pt calls appropriately, has wound vac in place. Plan: Possible discharge today with wound vac. Pt to have wound vac change prior to discharge. Abx, and stool sample.
[2021-04-28 05:13] LABS: Hematocrit 28.1 % (37.0-53.0); Hemoglobin 9.1 g/dL (13.5-17.5); Mean Corpuscular HGB 27.1 pg (26.0-34.0); Mean Corpuscular HGB Conc 32.4 g/dL (31.5-36.5); Mean Corpuscular Volume 84 fL (80-100); Mean Platelet Volume 9.6 fL (9.1-12.4); Platelet Count 276 K/mm3 (150-400); RDW Coefficient Variation 16.5 % (11.7-14.2); RDW Standard Deviation 50.8 fL (35.1-46.3); Red Blood Cell Count 3.36 M/mm3 (4.30-5.90); White Blood Cell Count 5.24 K/mm3 (4.00-11.30)
[2021-04-28 05:48] LABS: Anion Gap 5 mmol/L (6-16); Blood Urea Nitrogen 10 mg/dL (8-24); Bun/Creatinine Ratio 13.9 (12.0-20.0); CO2, Blood 31 mmol/L (21-32); Calcium, Blood 8.7 mg/dL (8.5-10.1); Chloride, Blood 96 mmol/L (98-108); Creatinine, Blood 0.72 mg/dL (0.60-1.20); Glomerular Filtration Rate >60 (60-); Glucose, Blood 250 mg/dL (70-99); Potassium, Blood 4.2 mmol/L (3.5-5.5); Sodium, Blood 132 mmol/L (136-145)
[2021-04-28] MEDS ORDERED: ACET500 PO ×2 (11:50)
[2021-04-28] MEDS ORDERED: LEVFLO500 PO ×2 (11:50)
[2021-04-28] MEDS ORDERED: VISBIOME 112.51 EACH PO ×2 (11:53)
[2021-04-28] MEDS ORDERED: MULTI-VITAMIN1 EAC2 PO ×2 (11:53)
[2021-04-28] MEDS ORDERED: VITAMIN D31000 UNI1 PO ×2 (11:54)
[2021-04-28 13:08] LABS: Stool Occult Blood Guaiac 1 Neg (Neg)
--- NOTE | 2021-04-28 16:10 | NUR ---
DISCHARGE NOTE: PT DISCHARGED TO [facility] TODAY. IV REMOVED AND PT TOLERATED WELL. WOUND VAC DRESSING CHANGED AND PHOTOS TAKEN OF WOUND. WOUND BED HAS 3 CM TUNNELLING AND MEASURES 11 CM BY 9 CM. GRANULATION TISSUE NOTED TO WOUND BED. SEROSANGUINEOUS DRAINAGE MODERATE AMOUNT. PT LEG IS EDEMOUS AND PURPLE RED COLORED SURROUNDING WOUND. PT REPORTED PAIN WITH WOUND CARE. TYLENOL GIVEN.
== END 2021-04-28 15:59 | disposition home or self-care (01) | DRG 854 ==
LOC: ER 12:14 → MEDS 18:26
PROVIDERS: Emergency Medicine; Internal Medicine; ADMIT Hospitalist
PROC: 30233N1 Transfusion of Nonautologous Red Blood Cells into Peripheral Vein, Percutaneous Approach (ICD-10-PCS; principal; 2021-04-24)
PROC: 0JBP0ZZ Excision of Left Lower Leg Subcutaneous Tissue and Fascia, Open Approach (ICD-10-PCS; 2021-04-25)
DX: A41.9 Sepsis, unspecified organism (principal); L97.829 Non-pressure chronic ulcer of other part of left lower leg with unspecified severity; L03.116 Cellulitis of left lower limb; E87.2 Acidosis; I10 Essential (primary) hypertension; D63.8 Anemia in other chronic diseases classified elsewhere; F32.9 Major depressive disorder, single episode, unspecified; Z20.822 Contact with and (suspected) exposure to COVID-19; E11.65 Type 2 diabetes mellitus with hyperglycemia; F10.20 Alcohol dependence, uncomplicated; B87.89 Myiasis of other sites; Z98.890 Other specified postprocedural states; Z87.891 Personal history of nicotine dependence; Z59.00 Homelessness unspecified; Z91.14 Patient's other noncompliance with medication regimen; Z79.4 Long term (current) use of insulin; Z79.899 Other long term (current) drug therapy
CPT/HCPCS: 36415; 36430; 71045; 73701; 80048; 80053; 80202; 81001; 82272; 82947; 83036; 83605; 83735; 84100; 84145; 85025; 85027; 86850; 86900; 86901; 86923; 87040; 87070; 87071; 87075; 87077; 87186; 87205; 93005; 93010; 96365-59; 96375-59; 99285-25; A9270; G0480; J0696; J1100; J1170; J1650; J1815; J1885; J2405; J2704; J3010; J3370; J7030; J7040; J7120; P9016; Q9967; U0004

== ENCOUNTER 2021-05-01 02:11 | Day surgery (SDC) | payer OTHER ==
[~2021-05-01 02:11] MED LIST changes: +ACET500 PO; +FOLI1 PO; +HUMALOG KW100 UNIT/1 SC; +Hydroxyzine HCl50 MG PO; +INSULANPEN SC; +LEVFLO500 PO; +METO25ER PO; +MULTI-VITAMIN1 EAC2 PO; +Prinivil10 MG PO; +SERT100 PO; +VITAMIN D31000 UNI1 PO
== END 2021-05-01 23:03 | disposition home or self-care (01) ==
LOC: WOUND 02:11
DX: E10.622 Type 1 diabetes mellitus with other skin ulcer (principal); L97.829 Non-pressure chronic ulcer of other part of left lower leg with unspecified severity; L97.812 Non-pressure chronic ulcer of other part of right lower leg with fat layer exposed; E10.59 Type 1 diabetes mellitus with other circulatory complications; E10.51 Type 1 diabetes mellitus with diabetic peripheral angiopathy without gangrene; Z59.00 Homelessness unspecified
CPT/HCPCS: A9270

== ENCOUNTER 2021-05-03 01:31 | Day surgery (SDC) | payer OTHER | END 2021-05-03 23:10 | disposition home or self-care (01) | LOC: WOUND 01:31 | DX: E10.622 Type 1 diabetes mellitus with other skin ulcer (principal); L97.829 Non-pressure chronic ulcer of other part of left lower leg with unspecified severity; L97.812 Non-pressure chronic ulcer of other part of right lower leg with fat layer exposed; L03.90 Cellulitis, unspecified; E10.59 Type 1 diabetes mellitus with other circulatory complications; E10.51 Type 1 diabetes mellitus with diabetic peripheral angiopathy without gangrene; Z59.00 Homelessness unspecified ==

== ENCOUNTER 2021-05-06 03:21 | Day surgery (SDC) | payer OTHER | END 2021-05-06 22:52 | disposition home or self-care (01) | LOC: WOUND 03:21 | DX: E10.622 Type 1 diabetes mellitus with other skin ulcer (principal); L97.812 Non-pressure chronic ulcer of other part of right lower leg with fat layer exposed; L97.822 Non-pressure chronic ulcer of other part of left lower leg with fat layer exposed; L03.116 Cellulitis of left lower limb; L03.115 Cellulitis of right lower limb; E10.59 Type 1 diabetes mellitus with other circulatory complications; E10.51 Type 1 diabetes mellitus with diabetic peripheral angiopathy without gangrene; Z59.00 Homelessness unspecified | CPT/HCPCS: A9270 ==

== ENCOUNTER 2021-05-08 05:12 | Day surgery (SDC) | payer OTHER ==
[2021-05-14] MEDS ORDERED: Cleocin HCl150 MG PO (05:35)
== END 2021-05-08 22:43 | disposition home or self-care (01) ==
LOC: WOUND 05:12
DX: E10.622 Type 1 diabetes mellitus with other skin ulcer (principal); L97.829 Non-pressure chronic ulcer of other part of left lower leg with unspecified severity; L97.812 Non-pressure chronic ulcer of other part of right lower leg with fat layer exposed; E10.59 Type 1 diabetes mellitus with other circulatory complications; E10.51 Type 1 diabetes mellitus with diabetic peripheral angiopathy without gangrene; Z59.00 Homelessness unspecified

== ENCOUNTER 2021-05-13 03:59 | Day surgery (SDC) | payer OTHER ==
[2021-05-14] MEDS ORDERED: Cleocin HCl150 MG PO (05:35)
== END 2021-05-13 12:00 | disposition home or self-care (01) ==
LOC: WOUND 03:59
DX: E10.622 Type 1 diabetes mellitus with other skin ulcer (principal); L97.829 Non-pressure chronic ulcer of other part of left lower leg with unspecified severity; L97.812 Non-pressure chronic ulcer of other part of right lower leg with fat layer exposed; E10.59 Type 1 diabetes mellitus with other circulatory complications; E10.51 Type 1 diabetes mellitus with diabetic peripheral angiopathy without gangrene; Z59.00 Homelessness unspecified
CPT/HCPCS: G0463

== ENCOUNTER 2021-05-15 04:39 | Day surgery (SDC) | payer OTHER ==
[~2021-05-15 04:39] MED LIST changes: +Cleocin HCl150 MG PO
== END 2021-05-15 23:56 | disposition home or self-care (01) ==
LOC: WOUND
DX: E10.622 Type 1 diabetes mellitus with other skin ulcer (principal); L97.812 Non-pressure chronic ulcer of other part of right lower leg with fat layer exposed; L97.829 Non-pressure chronic ulcer of other part of left lower leg with unspecified severity; L03.115 Cellulitis of right lower limb; E10.59 Type 1 diabetes mellitus with other circulatory complications; E10.51 Type 1 diabetes mellitus with diabetic peripheral angiopathy without gangrene; Z59.00 Homelessness unspecified

== ENCOUNTER 2021-05-17 03:31 | Day surgery (SDC) | payer OTHER | END 2021-05-17 22:52 | disposition home or self-care (01) | LOC: WOUND 03:31 | DX: E10.622 Type 1 diabetes mellitus with other skin ulcer (principal); L97.829 Non-pressure chronic ulcer of other part of left lower leg with unspecified severity; L97.812 Non-pressure chronic ulcer of other part of right lower leg with fat layer exposed; L03.115 Cellulitis of right lower limb; E10.51 Type 1 diabetes mellitus with diabetic peripheral angiopathy without gangrene; Z59.00 Homelessness unspecified | CPT/HCPCS: G0463 ==

== ENCOUNTER 2021-05-26 14:20 | Inpatient (IN) | payer OTHER ==
[~2021-05-26] VITALS: Ht 172.7 cm; Wt 56.2 kg
[2021-05-26 15:07] LABS: BASOPHILS ABSOLUTE AUTO 0.05 K/mm3 (0.00-0.23); BASOPHILS PERCENT AUTO 0 % (0-2); EOSINOPHILS PERCENT AUTO 0 % (0-6); Hematocrit 38.8 % (37.0-53.0); Hemoglobin 11.9 g/dL (13.5-17.5); IMMATURE GRAN ABSOLUTE AUTO 0.38 K/mm3 (0.00-0.10); IMMATURE GRAN PERCENT AUTO 3 % (0-1); LYMPHOCYTES ABSOLUTE AUTO 0.51 K/mm3 (0.84-5.20); LYMPHOCYTES PERCENT AUTO 3 % (21-46); MONOCYTES PERCENT AUTO 4 % (4-13); Mean Corpuscular HGB 26.9 pg (26.0-34.0); Mean Corpuscular HGB Conc 30.7 g/dL (31.5-36.5); Mean Corpuscular Volume 88 fL (80-100); Mean Platelet Volume 11.3 fL (9.1-12.4); NEUTROPHILS ABSOLUTE AUTO 13.33 K/mm3 (1.96-9.15); NEUTROPHILS PERCENT AUTO 90 % (41-73); Platelet Count 276 K/mm3 (150-400); RDW Coefficient Variation 15.3 % (11.7-14.2); RDW Standard Deviation 49.2 fL (35.1-46.3); Red Blood Cell Count 4.43 M/mm3 (4.30-5.90); White Blood Cell Count 14.87 K/mm3 (4.00-11.30)
[2021-05-26 15:15] LABS: Troponin I <0.015 ng/mL (0.000-0.040)
[2021-05-26 15:31] LABS: Alanine Aminotransfer (ALT/SGP 17 U/L (12-78); Albumin, Blood 3.1 g/dL (3.4-5.0); Albumin/Globulin Ratio 0.7 (0.8-1.8); Alk Phos 121 U/L (50-136); Anion Gap 32 mmol/L (6-16); Aspartate Aminotrans (AST/SGOT 17 U/L (12-37); Bilirubin, Total 0.4 mg/dL (0.1-1.0); Blood Urea Nitrogen 40 mg/dL (8-24); Bun/Creatinine Ratio 35.7 (12.0-20.0); CO2, Blood 5 mmol/L (21-32); Calcium, Blood 8.7 mg/dL (8.5-10.1); Chloride, Blood 84 mmol/L (98-108); Creatinine, Blood 1.12 mg/dL (0.60-1.20); Globulin, Blood 4.6 g/dL (2.2-4.0); Glomerular Filtration Rate >60 (60-); Potassium, Blood 4.6 mmol/L (3.5-5.5); Sodium, Blood 121 mmol/L (136-145); Total Protein, Blood 7.7 g/dL (6.4-8.2)
[2021-05-26 15:33] LABS: Glucose, Blood 626 mg/dL (70-99)
[2021-05-26 16:12] LABS: Base Excess Venous -29.5 mmol/L; Bicarbonate Venous 5.8 mmol/L (24.0-30.0); PCO2 Venous 19.4 mmHg (38-42); PO2 Venous 107 mmHg (38-42)
[2021-05-26 16:14] LABS: pH Blood Venous 6.88 (7.34-7.37)
[2021-05-26 16:29] LABS: Influenza A, PCR NEGATIVE (NEGATIVE); Influenza B, PCR NEGATIVE (NEGATIVE); Resp Syncytial Virus, PCR NEGATIVE (NEGATIVE)
[2021-05-26 16:34] LABS: SARS-Cov-2 (COVID-19) PCR, MMC POSITIVE (NEGATIVE)
[2021-05-26 18:05] LABS: Source, Urine Clean Catch
[2021-05-26 18:11] LABS: Appearance, Urine Clear (Clear); Bilirubin, Urine Neg (Neg); Blood, Urine 1+ (Neg); Color, Urine Yellow (P-Yellow); Glucose Qualitative, Urine 4+ (Neg); Ketones, Urine 4+ (Neg); Leukocyte Esterase, Urine Neg (Neg); Nitrite, Urine Neg (Neg); Protein, Urine 3+ (Neg); Urobilinogen, Urine NORM (Normal)
[2021-05-26 18:24] LABS: Amorphous Light (0-Heavy); Bacteria Mod /hpf; Red Blood Cells, Urine 0-2 /hpf (0-2); Squamous Epithelial Cells Rare /hpf (Few); White Blood Cells, Urine Rare /hpf (0-5)
[2021-05-26 18:50] LABS: Glucose, Blood 516 mg/dL (70-99)
--- NOTE | 2021-05-26 20:49 | NUR ---
PATIENT ARRIVED TO ICU 4, VIA GURNEY FROM ED PLACED IN ISOLATION DUE TO COVID 19 + SWAB TODAY. PATIENT WITH DRESSINGS CD&I TO BOTH LEGS, WAS SEEN BY WOUND CARE CLINIC THIS PAST THURSDAY. PATIENT WEAK ON AND POOR COORDINATION. ABLE TO TRANSFER TO BED WITH ASSISTANCE. PLACED ON ICU MONITORS. INSULIN INFUSING 6.4 UNITS/HR, AND NS 75 CC/HR. NS INCREASED TO 125 CC/HR PER ORDER. PATIENT ABLE TO ANSWER ADMIT QUESTIONS.
[2021-05-26 22:26] LABS: Anion Gap 23 mmol/L (6-16); Blood Urea Nitrogen 44 mg/dL (8-24); Bun/Creatinine Ratio 40.4 (12.0-20.0); CO2, Blood 9 mmol/L (21-32); Chloride, Blood 98 mmol/L (98-108); Creatinine, Blood 1.09 mg/dL (0.60-1.20); Glomerular Filtration Rate >60 (60-); Glucose, Blood 330 mg/dL (70-99); Potassium, Blood 3.9 mmol/L (3.5-5.5); Sodium, Blood 130 mmol/L (136-145)
--- NOTE | 2021-05-26 22:37 | NUR ---
DOCTOR IVET NOTIFIED OF REPEAT LABS, CONTINUING INSULIN DRIP PLAN TO START D5 1/2NS WHEN GLUCOSE LESS THAN 250
[2021-05-27 04:17] LABS: BASOPHILS ABSOLUTE AUTO 0.02 K/mm3 (0.00-0.23); BASOPHILS PERCENT AUTO 0 % (0-2); EOSINOPHILS ABSOLUTE AUTO 0.02 K/mm3 (0.00-0.68); EOSINOPHILS PERCENT AUTO 0 % (0-6); Hematocrit 27.6 % (37.0-53.0); Hemoglobin 9.7 g/dL (13.5-17.5); IMMATURE GRAN ABSOLUTE AUTO 0.09 K/mm3 (0.00-0.10); IMMATURE GRAN PERCENT AUTO 1 % (0-1); LYMPHOCYTES ABSOLUTE AUTO 0.62 K/mm3 (0.84-5.20); LYMPHOCYTES PERCENT AUTO 6 % (21-46); MONOCYTES ABSOLUTE AUTO 0.78 K/mm3 (0.16-1.47); MONOCYTES PERCENT AUTO 7 % (4-13); Mean Corpuscular HGB 26.9 pg (26.0-34.0); Mean Corpuscular HGB Conc 35.1 g/dL (31.5-36.5); Mean Platelet Volume 10.1 fL (9.1-12.4); NEUTROPHILS ABSOLUTE AUTO 9.34 K/mm3 (1.96-9.15); NEUTROPHILS PERCENT AUTO 86 % (41-73); Platelet Count 227 K/mm3 (150-400); RDW Coefficient Variation 14.9 % (11.7-14.2); RDW Standard Deviation 41.9 fL (35.1-46.3); White Blood Cell Count 10.87 K/mm3 (4.00-11.30)
[2021-05-27 04:22] LABS: Mean Corpuscular Volume 77 fL (80-100)
[2021-05-27 04:40] LABS: Anion Gap 11 mmol/L (6-16); Blood Urea Nitrogen 39 mg/dL (8-24); Bun/Creatinine Ratio 40.5 (12.0-20.0); CO2, Blood 19 mmol/L (21-32); Calcium, Blood 8.2 mg/dL (8.5-10.1); Chloride, Blood 101 mmol/L (98-108); Creatinine, Blood 0.96 mg/dL (0.60-1.20); Glomerular Filtration Rate >60 (60-); Glucose, Blood 157 mg/dL (70-99); Potassium, Blood 3.4 mmol/L (3.5-5.5); Sodium, Blood 131 mmol/L (136-145)
--- NOTE | 2021-05-27 06:38 | NUR ---
SUMMARY PATIENT SLEEPING OFF AND ON T/O NIGHT REPOSITIONING SELF IN BED FOR COMFORT. INSULIN DRIP CONTINUES TITRATED TO 3 UNITS/HR. D5 1/2 NS @ 100/HR INFUSING. PATIENT DEREJE DIET JELLO AND PO FLUIDS WITHOUT DIFFICULTY AND NO NAUSEA. DOCTOR MARGUERITE NOTIFIED OF AM CHEM AND KRIDER STARTED. CARRASCO REMAINS IN PLACE DRAINING CLEAR YELLOW URINE. SPAR FINISHER SHOWING SINUS RHYTHM WITH OCCASIONAL PVC AND AT TIMES UP TO 160'S (SVT) SELF RESOLVING. WHEN SHOWING SVT PATIENT RESTING QUIETLY WITH NO COMPLAINTS.
--- NOTE | 2021-05-27 09:28 | NUR ---
ASSUMED CARE OF PATIENT, ASSESSMENT PERFORMED NOTED IN CHART. PT RESTING COMFORTABLE, FOOD TRAY GIVEN AND INSULIN LOWERED TO 2 BS CHECK AT 129. UPON HOUR CHAECK AFTER MEAL, BS 216, INSULIN INCREASED TO 3 UNITS AN HOUR. WILL CONTINUE TO MONITOR.
[2021-05-27 10:47] LABS: Anion Gap 7 mmol/L (6-16); Blood Urea Nitrogen 34 mg/dL (8-24); Bun/Creatinine Ratio 34.1 (12.0-20.0); CO2, Blood 20 mmol/L (21-32); Calcium, Blood 7.9 mg/dL (8.5-10.1); Chloride, Blood 100 mmol/L (98-108); Glomerular Filtration Rate >60 (60-); Glucose, Blood 245 mg/dL (70-99); Potassium, Blood 4.2 mmol/L (3.5-5.5); Sodium, Blood 127 mmol/L (136-145)
--- NOTE | 2021-05-27 11:02 | NUR ---
Echocardiogram completed.
--- NOTE | 2021-05-27 14:54 | NUR ---
iNSULIN DRIP STOPED AT 1330, BS 150. PATIENT RESTING COMFORTABLE. WILL CONTINUE TO [facility].
--- NOTE | 2021-05-27 19:26 | NUR ---
02 CHECK: ORDER FOR SP02>/=92%. PT FOUND ON RA ALERT AND W/O DISTRESS. [id number]%, HR97,RR25. ORDER FOR 2 LPM NC IF 02 THERAPY REQUIRED NOTED.
[2021-05-28 03:52] LABS: Albumin, Blood 2.2 g/dL (3.4-5.0); Anion Gap 7 mmol/L (6-16); Blood Urea Nitrogen 25 mg/dL (8-24); Bun/Creatinine Ratio 27.2 (12.0-20.0); CO2, Blood 21 mmol/L (21-32); Calcium, Blood 8.1 mg/dL (8.5-10.1); Chloride, Blood 100 mmol/L (98-108); Creatinine, Blood 0.92 mg/dL (0.60-1.20); Glomerular Filtration Rate >60 (60-); Glucose, Blood 398 mg/dL (70-99); Phosphorus, Blood 1.1 mg/dL (2.5-4.9); Potassium, Blood 3.6 mmol/L (3.5-5.5); Sodium, Blood 128 mmol/L (136-145)
--- NOTE | 2021-05-28 05:37 | NUR ---
CALL TO DR CHADWICK RE: AM CBG 378, PER , COVER WITH ORDERED SLIDING SCALE. CHUY STRICKLAND
--- NOTE | 2021-05-28 09:27 | NUR ---
cCALLED TO DR Valero ABOUT PT HR. WHILE RESTING PT RATE JUMPS INTO THE 140-150S AND CORRECTS AFTER A FEW MINUTES. ORDER TO CHECK MAG AND ORDER FOR METOP. WILL CONTINUE TO MONITOR.
[2021-05-28] MEDS ORDERED: METO25 PO ×2 (13:49→16:06)
[2021-05-28] MEDS ORDERED: MAGNESIUM OXID500 MG PO (14:02)
[2021-05-28] MEDS ORDERED: DULCOLAX400 MG/5 M PO (14:05)
[2021-05-28] MEDS ORDERED: BISA10S PR (14:07)
[2021-05-28] MEDS ORDERED: K-Phos Origina500 MG PO (14:24)
--- NOTE | 2021-05-28 15:43 | NUR ---
k-phos is off at this time. pt eagar to leave. phos lab needs to be drawn in one hour and then reassess pt status and [facility]. will continue to monitor
== END 2021-05-28 19:05 | disposition home or self-care (01) | DRG 637 ==
LOC: ER 14:20 → ERHOLD 17:27 → ICUE 19:40
PROVIDERS: Emergency Medicine; Internal Medicine; Student in an Organized Health Care Education/Training Program; ADMIT Hospitalist
PROC: 8E0ZXY6 Isolation (ICD-10-PCS; principal; 2021-05-26)
DX: E11.10 Type 2 diabetes mellitus with ketoacidosis without coma (principal); U07.1 COVID-19; E87.1 Hypo-osmolality and hyponatremia; I50.22 Chronic systolic (congestive) heart failure; J44.9 Chronic obstructive pulmonary disease, unspecified; S81.801A Unspecified open wound, right lower leg, initial encounter; D63.8 Anemia in other chronic diseases classified elsewhere; Z98.890 Other specified postprocedural states; Z87.891 Personal history of nicotine dependence; Z79.4 Long term (current) use of insulin; Z79.899 Other long term (current) drug therapy
CPT/HCPCS: 0241U; 36415; 51702; 71045; 80048; 80053; 80069; 81001; 82010; 82803; 82947; 83735; 83880; 84100; 84145; 84484; 85025; 87086; 90686; 93005; 93010; 93306; 96365; 96366; 96375; 97116; 97161; 99285-25; A9270; G0008; J1650; J1815; J1940; J2405; J3480; J7030; J7042; J7060

== ENCOUNTER 2021-06-15 00:19 | Emergency (ER) | payer OTHER ==
[~2021-06-15] VITALS: Ht 172.7 cm; Wt 68.0 kg
[~2021-06-15 00:19] MED LIST changes: +BISA10S PR; +DULCOLAX400 MG/5 M PO; +K-Phos Origina500 MG PO; +MAGNESIUM OXID500 MG PO; +METO25 PO
[2021-06-15 00:58] LABS: BASOPHILS ABSOLUTE AUTO 0.04 K/mm3 (0.00-0.23); BASOPHILS PERCENT AUTO 1 % (0-2); EOSINOPHILS ABSOLUTE AUTO 0.14 K/mm3 (0.00-0.68); EOSINOPHILS PERCENT AUTO 3 % (0-6); Hematocrit 28.2 % (37.0-53.0); Hemoglobin 9.4 g/dL (13.5-17.5); IMMATURE GRAN ABSOLUTE AUTO 0.07 K/mm3 (0.00-0.10); IMMATURE GRAN PERCENT AUTO 2 % (0-1); LYMPHOCYTES ABSOLUTE AUTO 1.49 K/mm3 (0.84-5.20); LYMPHOCYTES PERCENT AUTO 31 % (21-46); MONOCYTES ABSOLUTE AUTO 0.45 K/mm3 (0.16-1.47); MONOCYTES PERCENT AUTO 10 % (4-13); Mean Corpuscular HGB 27.8 pg (26.0-34.0); Mean Corpuscular HGB Conc 33.3 g/dL (31.5-36.5); Mean Corpuscular Volume 83 fL (80-100); NEUTROPHILS ABSOLUTE AUTO 2.55 K/mm3 (1.96-9.15); NEUTROPHILS PERCENT AUTO 54 % (41-73); RDW Coefficient Variation 17.2 % (11.7-14.2); RDW Standard Deviation 52.2 fL (35.1-46.3); Red Blood Cell Count 3.38 M/mm3 (4.30-5.90); White Blood Cell Count 4.74 K/mm3 (4.00-11.30)
[2021-06-15 00:59] LABS: Mean Platelet Volume 9.3 fL (9.1-12.4); Platelet Count 211 K/mm3 (150-400)
[2021-06-15 01:15] LABS: Alanine Aminotransfer (ALT/SGP 18 U/L (12-78); Albumin, Blood 2.8 g/dL (3.4-5.0); Albumin/Globulin Ratio 0.7 (0.8-1.8); Alk Phos 163 U/L (50-136); Anion Gap 19 mmol/L (6-16); Aspartate Aminotrans (AST/SGOT 22 U/L (12-37); Beta-hydroxybutyrate 12.7 mg/dL (0.2-2.8); Bilirubin, Total 0.2 mg/dL (0.1-1.0); Blood Urea Nitrogen 18 mg/dL (8-24); Bun/Creatinine Ratio 22.8 (12.0-20.0); CO2, Blood 19 mmol/L (21-32); Calcium, Blood 8.6 mg/dL (8.5-10.1); Chloride, Blood 90 mmol/L (98-108); Creatinine, Blood 0.79 mg/dL (0.60-1.20); Globulin, Blood 4.2 g/dL (2.2-4.0); Glomerular Filtration Rate >60 (60-); Glucose, Blood 476 mg/dL (70-99); Potassium, Blood 4.6 mmol/L (3.5-5.5); Sodium, Blood 128 mmol/L (136-145); Troponin I <0.015 ng/mL (0.000-0.040)
[2021-06-15 01:27] LABS: Base Excess Venous -4.7 mmol/L; Bicarbonate Venous 20.7 mmol/L (24.0-30.0); PCO2 Venous 41.9 mmHg (38-42); pH Blood Venous 7.32 (7.34-7.37)
[2021-06-15 04:25] LABS: Source, Urine Clean Catch
[2021-06-15 04:29] LABS: Appearance, Urine Clear (Clear); Bilirubin, Urine Neg (Neg); Blood, Urine 1+ (Neg); Color, Urine Yellow (P-Yellow); Glucose Qualitative, Urine 4+ (Neg); Ketones, Urine 1+ (Neg); Leukocyte Esterase, Urine Neg (Neg); Nitrite, Urine Neg (Neg); Protein, Urine 2+ (Neg); Urobilinogen, Urine NORM (Normal)
[2021-06-15 04:36] LABS: Red Blood Cells, Urine 0-2 /hpf (0-2); Squamous Epithelial Cells Few /hpf (Few); White Blood Cells, Urine 0-2 /hpf (0-5)
[2021-06-15 04:37] LABS: Bacteria Not Seen /hpf
[2021-06-15 07:51] LABS: Anion Gap 11 mmol/L (6-16); Blood Urea Nitrogen 13 mg/dL (8-24); Bun/Creatinine Ratio 22.3 (12.0-20.0); CO2, Blood 24 mmol/L (21-32); Chloride, Blood 99 mmol/L (98-108); Creatinine, Blood 0.58 mg/dL (0.60-1.20); Glomerular Filtration Rate >60 (60-); Glucose, Blood 257 mg/dL (70-99); Sodium, Blood 134 mmol/L (136-145)
== END 2021-06-15 08:38 | disposition home or self-care (01) ==
LOC: ER 00:19
PROVIDERS: Physician Assistant; Student in an Organized Health Care Education/Training Program
DX: S01.112A Laceration without foreign body of left eyelid and periocular area, initial encounter (principal); E11.65 Type 2 diabetes mellitus with hyperglycemia; I10 Essential (primary) hypertension; Z87.891 Personal history of nicotine dependence; W19.XXXA Unspecified fall, initial encounter
CPT/HCPCS: 12002; 70450; 72125; 80048; 80053; 81001; 82010; 82803; 82947; 84484; 85025; 93005; 93010; 96365; 96375; 99285-25; J1815; J2270; J7030